=== PATIENT | male | born 1985 | race American Indian/Alaskan Native ===

== ENCOUNTER 2020-12-25 14:42 | Emergency (ER) | payer MEDICAID ==
--- NOTE | 2020-12-25 15:43 | EDM.PDOC ---
ED HPI GENERAL MEDICAL PROBLEM - General Chief Complaint: Laceration Stated Complaint: CUT FINGER LEFT HAND Time Seen by Provider: 12/25/20 15:13 Source of Information: Reports: Patient History Limitations: Reports: No Limitations - History of Present Illness INITIAL COMMENTS - FREE TEXT/NARRATIVE: 35 yo male presents to ER with a laceration to his 2nd digit of his left hand. Injury occurred last evening. last tetanus in 2005. no other concerns - Related Data Allergies Allergy/AdvReac Type Severity Reaction Status Date / Time No Known Allergies Allergy Verified 12/25/20 15:12 Home Meds: Home Meds NK [No Known Home Meds] 12/25/20 [History] Past Medical History HEENT History: Reports: Impaired Vision Musculoskeletal History: Reports: Fracture Social & Family History - Tobacco Use Tobacco Use Status *Q: Current Some Day Tobacco User Years of Tobacco use: 20 Packs/Tins Daily: 0.5 - Caffeine Use Caffeine Use: Reports: Coffee, Energy Drinks, Soda - Recreational Drug Use Recreational Drug Use: No ED ROS GENERAL - Review of Systems Review Of Systems: See Below Constitutional: Denies: Fever, Chills Respiratory: Denies: Shortness of Breath, Wheezing Cardiovascular: Denies: Chest Pain ED EXAM, SKIN/RASH Exam: See Below Exam Limited By: No Limitations General Appearance: Alert, WD/WN, No Apparent Distress Respiratory/Chest: No Respiratory Distress Skin: Wound/Incision (laceration left 2nd digit) ED SKIN PROCEDURES - Laceration/Wound Repair Left Anterior Distal Digit - 2nd (Index) Appearance: Superficial Distal NVT: Neuro & Vascular Intact Anesthetic Type: Local Local Anesthesia - Lidocaine (Xylocaine): 1% with EPI Local Anesthetic Volume: 5cc Skin Prep: Chlorhexidine (Hibiciens), Saline, Sterile Drape Saline Irrigation (cc's): 50 Exploration/Debridement/Repair: Wound Explored, In a Bloodless Field, Explored to Base, Minimal Debridement Closed with: Sutures Lac/Wound length In cm: 2 Suture Size: 4-0 # of Sutures: 5 Suture Type: Nylon, Interrupted, Simple Course - Vital Signs Last Recorded V/S: Last Vital Signs Temp 36.6 C 12/25/20 15:13 Pulse 79 12/25/20 15:13 Resp 15 12/25/20 15:13 BP 140/80 12/25/20 15:13 Pulse Ox 99 12/25/20 15:13 - Orders/Labs/Meds Meds: Medications Discontinued Medications Generic Name Dose Route Start Last Admin Trade Name Desmond PRN Reason Stop Dose Admin Bacitracin 1 dose 12/25/20 16:09 12/25/20 16:19 Bacitracin Oint 1 Gm U/D Packet TOP 12/25/20 16:10 1 dose ONETIME ONE Administration Lidocaine/Epinephrine 5 ml 12/25/20 16:09 12/25/20 16:20 Lidocaine 1% With Epinephrine 1:100,000 50 Ml Mdv INFILT 12/25/20 16:10 5 ml ONETIME ONE Administration Departure - Departure Time of Disposition: 16:30 Disposition: Home, Self-Care 01 Condition: Good Clinical Impression: Laceration of finger Qualifiers: Encounter type: initial encounter Finger: index finger Damage to nail status: without damage Foreign body presence: without foreign body Laterality: left Qual ified Code(s): S61.211A - Laceration without foreign body of left index finger without damage to nail, initial encounter - Discharge Information *PRESCRIPTION DRUG MONITORING PROGRAM REVIEWED*: Not Applicable *COPY OF PRESCRIPTION DRUG MONITORING REPORT IN PATIENT ABIDA: Not Applicable Instructions: Sutures, Mobile, or Adhesive Wound Closure, [id number] Referrals: PCP,None [Primary Care Provider] - Forms: ED Department Discharge Additional Instructions: sutures to be removed in 7-9 days wash with warm soapy water pat dry keep clean and covered do not soak hand in water - no dishes or swimming until sutures are removed ice for pain control observe for signs of infection: fire engine red, increase in pain or swelling, purulent drainage Sepsis Event Note (ED) - Evaluation Sepsis Screening Result: No Definite Risk - Focused Exam Vital Signs: Vital Signs Temp Pulse Resp BP Pulse Ox 12/25/20 15:13 36.6 C 79 15 140/80 99 12/25/20 15:02 36.6 C 79 15 140/80 99
[2020-12-25] MEDS ORDERED: Lidocaine 1% with EPINEPHrine 1:100,000 50 ML MDV INFILT ONE (16:09)
[2020-12-25] MEDS ORDERED: Bacitracin Oint 1 GM U/D Packet TOP ONE (16:09)
== END 2020-12-25 16:43 | disposition home or self-care (01) ==
LOC: JP.ED 14:42
DX: S61.211A Laceration without foreign body of left index finger without damage to nail, initial encounter (principal); Z72.0 Tobacco use; W26.8XXA Contact with other sharp object(s), not elsewhere classified, initial encounter
CPT/HCPCS: 12001; 99282-25